=== PATIENT | female | born 1960 | race Two or more races ===

== ENCOUNTER 2020-01-06 06:04 | Emergency (ER) | payer OTHER ==
[2020-01-06 06:12] VITALS: BP 125/71
[2020-01-06] MEDS ORDERED: KETOROLAC TROMETHAMINE 0.45% 4 DROP/0.4 ML DROPERETTE OU ONE (06:59)
[2020-01-06] MEDS ORDERED: HOMATROPINE HBR 5% OPH SOLN 5 ML OS ONE (06:59)
[2020-01-06] MEDS ORDERED: TETRACAINE HCL 0.5% OPH SOLN 4 ML OU ONE (06:59)
[2020-01-06] MEDS ORDERED: TRIAMCINOLONE ACETONIDE 0.1% CREAM 15 GM TOP ONE (06:59)
--- NOTE | 2020-01-06 07:06 | ER Document Report ---
Entered by ELIO RAMAN SCRIBE 01/06/20 0636 Acting as scribe for:NILSON WORTHINGTON MD ED Eye Complaint - General Chief Complaint: Chemical Exposure in Eye Stated Complaint: LEFT EYE PAIN Time Seen by Provider: 01/06/20 06:28 Mode of Arrival: Ambulatory Information source: Patient Notes: This 59-year-old female patient presents to the emergency department today with complaints of bilateral eye irritation. Patient reports that she put on a facial moisturizer around her eyes prior to going to sleep last night and she thinks the mask that she wears to sleep in got it in her eyes. She has used a moisturizer in the past but did not wear the mask. Patient complains of bilateral eye irritation left > right. Patient states that it "feels like they're cut on the inside" when describing her pain. - Related Data Allergies/Adverse Reactions: No Known Allergies Allergy (Unverified 01/06/20 06:32) Home Medications: ibu, eff Past Medical History - General Information source: Patient - Social History Smoking Status: Former Smoker Cigarette use (# per day): No Chew tobacco use (# tins/day): No Frequency of alcohol use: Occasional Drug Abuse: None Family History: Reviewed & Not Pertinent Patient has homicidal ideation: No Review of Systems - Review of Systems Constitutional: No symptoms reported EENT: See HPI, Eye pain Cardiovascular: No symptoms reported Respiratory: No symptoms reported Gastrointestinal: No symptoms reported Genitourinary: No symptoms reported Female Genitourinary: No symptoms reported Musculoskeletal: No symptoms reported Skin: No symptoms reported Hematologic/Lymphatic: No symptoms reported Neurological/Psychological: No symptoms reported -: Yes All other systems reviewed and negative Physical Exam - Vital signs Vitals: Temp Pulse Resp BP Pulse Ox 98.7 F 82 16 125/71 100 01/06/20 06:11 01/06/20 06:11 01/06/20 06:11 01/06/20 06:11 01/06/20 06:11 - General General appearance: Appears well, Alert In distress: Mild - HEENT Head: Normocephalic, Atraumatic Eyes: Other - Conjunctiva is a little injected. There is some photophobic which seems worse to the left. The skin of the eyelids and just below the lids is very sensitive, the worst area is under the left lower lid. Pupils: PERRL - Respiratory Respiratory status: No respiratory distress - Cardiovascular Rhythm: Regular - Abdominal Inspection: Normal - Back Back: Normal - Extremities General upper extremity: Normal inspection General lower extremity: Normal inspection - Neurological Neuro grossly intact: Yes - Psychological Associated symptoms: Normal affect, Normal mood - Skin Skin Temperature: Warm Skin Moisture: Dry Skin Color: Normal Course - Re-evaluation Re-evalutation: 01/06/20 07:02 Procedure: Tetracaine drops were placed in each eye. Fluorescein stain was placed in each eye. There with a very slight hazy uptake in the left inferior lateral cornea. There was some hazy uptake on the sclera of both eyes but no specific area to the cornea of the right eye. The stain was irrigated with normal saline. Home atropine drops were placed in the left eye. Acular drops were placed into each eye. Triamcinolone 0.1% cream was applied to the eyelids. - Vital Signs Vital signs: Temp Pulse Resp BP Pulse Ox 98.7 F 82 16 125/71 100 01/06/20 06:18 01/06/20 06:11 01/06/20 06:11 01/06/20 06:11 01/06/20 06:11 Discharge - Discharge Clinical Impression: Corneal irritation of both eyes Chemical burn of eyelid region Qualifiers: Encounter type: initial encounter Laterality: unspecified laterality Qualified Code(s): T26.50XA - Corrosion of unspecified eyelid and periocular area, initial encounter Condition: Stable Disposition: HOME, SELF-CARE Additional Instructions: Use the ketorolac drops in your eyes for discomfort in the eyes. Put 1 drop in to each eye every 4 hours as needed. Use the triamcinolone cream to the skin around your eyes. Massage a small amount of the cream into the skin 3 times a day for a few days. Follow-up with a local eye doctor if not improving. RETURN TO THE EMERGENCY ROOM IF ANY NEW OR WORSENING SYMPTOMS. Prescriptions: Ketorolac Tromethamine 5 ml OU ASDIR PRN #1 drops PRN Reason: I personally performed the services described in the documentation, reviewed and edited the documentation which was dictated to the scribe in my presence, and it accurately records my words and actions.
== END 2020-01-06 08:35 | disposition home or self-care (01) ==
LOC: ER 06:04
DX: T65.91XA Toxic effect of unspecified substance, accidental (unintentional), initial encounter (principal); T26.5 Corrosion of eyelid and periocular area; H53.149 Visual discomfort, unspecified; H57.10 Ocular pain, unspecified eye; Z79.899 Other long term (current) drug therapy; Z87.891 Personal history of nicotine dependence
CPT/HCPCS: 99283; J3490 ×3